=== PATIENT | female | born 1970 | race Caucasian/White ===

== ENCOUNTER 2024-03-21 06:22 | Day surgery (SDC) | payer MEDICARE, OTHER ==
[2024-03-17 15:12] LABS: BASOPHILS # (AUTO) 0.1 X10'3 (0-0.2); BASOPHILS % (AUTO) 0.9 % (0-1); EOSINOPHILS # (AUTO) 0.1 X10'3 (0-0.9); LYMPHOCYTES # (AUTO) 2.8 X10'3 (1.1-4.8); LYMPHOCYTES % (AUTO) 28.6 % (21-51); MEAN CORPUSCULAR HEMOGLOBIN 30.3 PG (27.0-31.0); MEAN CORPUSCULAR VOLUME 91.8 FL (78-98); MEAN PLATELET VOLUME 8.2 FL (7.4-10.4); MONOCYTES # (AUTO) 0.6 X10'3 (0-0.9); MONOCYTES % (AUTO) 6.6 % (2-12); NEUTROPHILS # (AUTO) 6.2 X10'3 (1.8-7.7); NEUTROPHILS % (AUTO) 62.9 % (42-75); PRE OP HEMATOCRIT 48.7 % (35.0-45.0); PRE OP HEMOGLOBIN 16.1 g/dL (12.0-16.0); PRE OP PLATELET COUNT 297 X10'3 (140-440); PRE OP WHITE BLOOD COUNT 9.8 10'3 (4.8-10.8); RED BLOOD COUNT 5.31 X10'6 (4.20-5.60); RED CELL DISTRIBUTION WIDTH 14.1 % (11.5-14.5)
[2024-03-17 15:25] LABS: ALBUMIN 3.9 G/DL (3.4-5.0); ALBUMIN/GLOBULIN RATIO 1.1 (1.1-1.5); ALKALINE PHOSPHATASE 128 IU/L (46-116); BLOOD UREA NITROGEN 18 MG/DL (7-18); BUN/CREATININE RATIO 17.5 (10.0-20.0); CALCIUM 9.1 MG/DL (8.5-10.1); CHLORIDE 107 MMOL/L (99-107); CREATININE 1.03 MG/DL (0.40-0.90); PRE OP ALT 40 U/L (30-65); PRE OP ANION GAP 6 (8-16); PRE OP AST 15 U/L (10-37); PRE OP BILIRUB, TOTAL 0.5 MG/DL (0.0-1.0); PRE OP GLUCOSE 85 MG/DL (70-104); PRE OP POTASSIUM 4.7 MMOL/L (3.4-5.1); PRE OP SODIUM 141 MMOL/L (135-145); TOTAL CARBON DIOXIDE 28.4 MMOL/L (24-32); TOTAL PROTEIN 7.3 G/DL (6.4-8.2); eGFR 56 ML/MIN
[~2024-03-21] VITALS: Ht 160 cm; Wt 102.8 kg
[2024-03-21] MEDS: clindamycin 600mg/D5W 50ml 50 ML IV ONE (05:30)
[~2024-03-21 06:22] MED LIST: ADAL40PE5 SUBCUT; ATOR20TA66 PO; BUPR-564 PO; CYCL-1 PO; GLIM1TAB56 PO; LOSA25TA41 PO; MAGNESIUM; MELO-102 PO; METF-900 PO; PHEN-434 PO; PREG25CA19 PO
[2024-03-21 06:45] VITALS: BP 176/103; PULSE 70; RESP 16; TEMP 98.4; O2SAT 98
[2024-03-21] MEDS ORDERED: LIDOcaine 2% (20mg/ml) 5ml vial ONE ×2 (07:01→07:02)
[2024-03-21] MEDS ORDERED: BUPIVAcaine/PF 2.5mg/ml (0.25%) 10ml vial ONE (07:02)
[2024-03-21] MEDS: famotidine 20mg tablet PO ONE (07:04)
[2024-03-21] MEDS: ringers solution, lacted 1,000 ML IV SCH (07:05)
[2024-03-21] MEDS: aprepitant 40mg capsule PO ONE (08:00)
[2024-03-21] MEDS ORDERED: hydrALAZINE 20mg/ml inj. IV PRN (08:35)
[2024-03-21] MEDS ORDERED: morphine 4 MG/ML inj SYRINge IV PRN (08:35)
[2024-03-21] MEDS ORDERED: ringers solution, lacted 1,000 ML IV SCH (08:35)
[2024-03-21] MEDS ORDERED: ondansetron/PF 4mg/2ml inj IV PRN (08:35)
[2024-03-21] MEDS ORDERED: acetaminophen 1,000mg/100ml IV 100 ML IV ONE (08:35)
[2024-03-21] MEDS ORDERED: meperidine/PF 25mg/ml syringe IV PRN ×3 (08:35)
[2024-03-21] MEDS ORDERED: labetalol 20mg/4ml (5mg/ml) syringe IV PRN (08:35)
[2024-03-21] MEDS ORDERED: proCHLORperazine 10 MG/2 ml inj IV PRN (08:35)
[2024-03-21] MEDS ORDERED: morphine 2 MG/ML inj. syringe IV PRN (08:35)
[2024-03-21] MEDS ORDERED: fentaNYL/PF 50MCG/1 ML 2ML syringe ONE (08:40)
[2024-03-21] MEDS: BUPIVAcaine 2.5mg/ml inj 50ml vial (contains preservative) SQ ONE (08:46)
[2024-03-21] MEDS ORDERED: propofol inj 20 ML IV ONE (08:53)
[2024-03-21] MEDS ORDERED: midazolam 1 mg/ML 2ml injection ONE (08:53)
[2024-03-21 09:01] VITALS: BP 145/95; PULSE 85; RESP 14; O2SAT 99
[2024-03-21 09:10] VITALS: BP 156/105; PULSE 74; RESP 14; O2SAT 98
[2024-03-21 09:20] VITALS: BP 153/104; PULSE 76; RESP 13; O2SAT 97
[2024-03-21 09:30] VITALS: BP 150/99; PULSE 75; RESP 15; O2SAT 97
== END 2024-03-21 10:01 | disposition home or self-care (01) ==
LOC: PAS 06:22
PROVIDERS: ATTEND Orthopaedic Surgery Hand Surgery
DX: M65.4 Radial styloid tenosynovitis [de Quervain] (principal); R94.31 Abnormal electrocardiogram [ECG] [EKG]; I10 Essential (primary) hypertension; E11.9 Type 2 diabetes mellitus without complications; E66.9 Obesity, unspecified; E78.5 Hyperlipidemia, unspecified; G43.909 Migraine, unspecified, not intractable, without status migrainosus; F41.9 Anxiety disorder, unspecified; F32.A Depression, unspecified; G47.33 Obstructive sleep apnea (adult) (pediatric); I25.2 Old myocardial infarction; M19.90 Unspecified osteoarthritis, unspecified site; Z79.84 Long term (current) use of oral hypoglycemic drugs; Z79.899 Other long term (current) drug therapy; Z90.49 Acquired absence of other specified parts of digestive tract; Z98.890 Other specified postprocedural states; Z68.41 Body mass index [BMI] 40.0-44.9, adult; Z88.0 Allergy status to penicillin; Z82.49 Family history of ischemic heart disease and other diseases of the circulatory system
CPT/HCPCS: 36415; 80053; 82948; 85025; 93005; A4215; A4618; A6449; A7000; J2250; J2704; J3010; J3490; J7120; J8501

== ENCOUNTER 2024-09-12 06:33 | Day surgery (SDC) | payer MEDICARE, OTHER ==
[2024-09-05 13:49] LABS: BASOPHILS % (AUTO) 0.2 % (0-1); EOSINOPHILS % (AUTO) 0 % (0-6); LYMPHOCYTES # (AUTO) 0.9 X10'3 (1.1-4.8); MEAN CORPUSCULAR HGB CONC 33.3 g/dL (33.0-36.5); MEAN PLATELET VOLUME 8.4 FL (7.4-10.4); MONOCYTES # (AUTO) 0.1 X10'3 (0-0.9); MONOCYTES % (AUTO) 1.3 % (2-12); NEUTROPHILS # (AUTO) 9.8 X10'3 (1.8-7.7); NEUTROPHILS % (AUTO) 90.5 % (42-75); PRE OP HEMATOCRIT 45.1 % (35.0-45.0); PRE OP PLATELET COUNT 266 X10'3 (140-440); PRE OP WHITE BLOOD COUNT 10.9 10'3 (4.8-10.8); RED BLOOD COUNT 4.85 X10'6 (4.20-5.60); RED CELL DISTRIBUTION WIDTH 13.2 % (11.5-14.5)
[2024-09-05 14:05] LABS: ALBUMIN 3.6 G/DL (3.4-5.0); ALKALINE PHOSPHATASE 132 IU/L (46-116); BLOOD UREA NITROGEN 24 MG/DL (7-18); BUN/CREATININE RATIO 27.9 (10.0-20.0); CALCIUM 8.8 MG/DL (8.5-10.1); CHLORIDE 109 MMOL/L (99-107); CREATININE 0.86 MG/DL (0.40-0.90); PRE OP ALT 60 U/L (30-65); PRE OP ANION GAP 5 (8-16); PRE OP AST 35 U/L (10-37); PRE OP BILIRUB, TOTAL 0.6 MG/DL (0.0-1.0); PRE OP POTASSIUM 4.4 MMOL/L (3.4-5.1); PRE OP SODIUM 142 MMOL/L (135-145); TOTAL CARBON DIOXIDE 27.8 MMOL/L (24-32); TOTAL PROTEIN 7.3 G/DL (6.4-8.2); eGFR 69 ML/MIN
[2024-09-05 14:34] LABS: PRE OP GLUCOSE 214 MG/DL (70-104)
[2024-09-12] VITALS (9 sets, daily range): BP systolic 139–160; BP diastolic 86–93; PULSE 71–84; RESP 10–20; TEMP 98.9; O2SAT 98–100
[~2024-09-12] VITALS: Ht 160 cm; Wt 101.9 kg
[2024-09-12] MEDS: famotidine 20mg tablet PO ONE (05:30)
[2024-09-12] MEDS: clindamycin-Cleocin 900mg/D5W 50 ML IV ONE (05:30)
[2024-09-12] MEDS: ringers solution, lacted 1,000 ML IV SCH (05:30)
[~2024-09-12 06:33] MED LIST changes: -ADAL40PE5 SUBCUT; -GLIM1TAB56 PO; +GLIM2TAB6 PO; -MAGNESIUM; -PHEN-434 PO
[2024-09-12] MEDS ORDERED: propofol inj 20 ML IV ONE (08:22)
[2024-09-12] MEDS ORDERED: fentaNYL/PF 50MCG/1 ML 2ML syringe ONE (08:22)
[2024-09-12] MEDS ORDERED: midazolam 1 mg/ML 2ml injection ONE (08:22)
[2024-09-12] MEDS ORDERED: LIDOcaine 0.5% (5mg/ml) 50ml vial ONE (08:23)
[2024-09-12] MEDS ORDERED: ringers solution, lacted 1,000 ML IV SCH (09:00)
[2024-09-12] MEDS ORDERED: proCHLORperazine 10 MG/2 ml inj IV PRN (09:00)
[2024-09-12] MEDS ORDERED: meperidine/PF 25mg/ml syringe IV PRN ×3 (09:00)
[2024-09-12] MEDS ORDERED: morphine 4 MG/ML inj SYRINge IV PRN (09:00)
[2024-09-12] MEDS ORDERED: BUPIVAcaine/PF 2.5mg/ml (0.25%) 10ml vial ONE (09:00)
[2024-09-12] MEDS ORDERED: morphine 2 MG/ML inj. syringe IV PRN (09:00)
[2024-09-12] MEDS: ondansetron/PF 4mg/2ml inj IV PRN (10:14)
== END 2024-09-12 10:17 | disposition home or self-care (01) ==
LOC: PAS 06:33
PROVIDERS: ATTEND Orthopaedic Surgery Hand Surgery
DX: G56.22 Lesion of ulnar nerve, left upper limb (principal); M65.4 Radial styloid tenosynovitis [de Quervain]; M79.641 Pain in right hand; Z79.899 Other long term (current) drug therapy; M25.371 Other instability, right ankle; M48.061 Spinal stenosis, lumbar region without neurogenic claudication; M47.816 Spondylosis without myelopathy or radiculopathy, lumbar region; Z98.890 Other specified postprocedural states; G43.909 Migraine, unspecified, not intractable, without status migrainosus; G47.30 Sleep apnea, unspecified; Z88.0 Allergy status to penicillin
CPT/HCPCS: 25000; 36415; 64718; 80053; 82948; 85025; A4215; A6449; J2003; J2250; J2405; J2704; J3010; J3490; J7030; J7120; Z7506; Z7512; Z7610